=== PATIENT | male | born 1960 | race Caucasian/White ===

== ENCOUNTER 2016-07-28 17:18 | Inpatient (IN) | payer BC ==
[~2016-07-28] VITALS: Ht 177.8 cm; Wt 114.1 kg
[2016-07-28] MEDS ORDERED: PAROXETINE CR25 MG PO (17:35)
[2016-07-28] MEDS ORDERED: TRIBENZOR PO (17:36)
[2016-07-28 21:46] LABS: EOSINOPHIL (%) 0.4 % (0-5); EOSINOPHIL COUNT 0.1 K/uL (0-0.3); HEMATOCRIT 40.8 % (38.0-50.0); IMMATURE GRANULOCYTE (%) 0.4 % (0.0-0.7); IMMATURE GRANULOCYTE COUNT 0.6 K/uL; LYMPHOCYTE COUNT 1.4 K/uL (1.0-2.8); MCH 31.5 PG (29.0-34.0); MCHC 34.1 G/DL (30.0-36.0); MCV 92.5 FL (86-99); MONOCYTE (%) 5.3 % (3-12); MONOCYTE COUNT 0.7 K/uL (0-0.8); NEUTROPHIL (%) 83.3 % (45-76); NEUTROPHIL COUNT 11.4 K/uL (1.8-6.4); PLATELET COUNT 250 K/uL (156-360); RBC DIS.WIDTH-CV 12.9 % (11.8-14.6); RBC DIS.WIDTH-SD 42.4 % (39-53); RED BLOOD COUNT 4.41 M/uL (4.00-5.50); WHITE BLOOD COUNT 13.7 K/uL (4.1-10.2)
[2016-07-28 21:55] LABS: INTER. NORMALIZED RATIO 1.1; PROTHROMBIN TIME 10.8 (9.2-11.2)
[2016-07-28 22:00] LABS: CHLORIDE 104 mEq/L (99-109); POTASSIUM 4.8 mEq/L (3.7-5.4); SODIUM 138 mEq/L (136-147)
[2016-07-28 22:02] LABS: GLUCOSE 131 mg/dL (70-99)
[2016-07-28 22:03] LABS: ANION GAP 12 MEQ/L (2-14)
[2016-07-28 22:04] LABS: TOTAL BILIRUBIN 0.5 mg/dL (0.0-1.0)
[2016-07-28 22:05] LABS: ALKALINE PHOSPHATASE 44 IU/L (3-129)
[2016-07-28 22:06] LABS: GFR ESTIMATE (CALCULATED) > 59 mL/min/
[2016-07-28 22:07] LABS: UREA NITROGEN (BUN) 17 mg/dL (9-23)
[2016-07-28] MEDS ORDERED: TRIBENZOR 40-51 EAC4 PO (22:18)
[2016-07-28 23:41] VITALS: BP 124/76
[2016-07-29 04:56] VITALS: BP 117/68
[2016-07-29 05:38] LABS: HEMATOCRIT 41.2 % (38.0-50.0); MCH 32.8 PG (29.0-34.0); MCHC 34.5 G/DL (30.0-36.0); MCV 95.2 FL (86-99); MEAN PLAT.VOLUME 9.4 uM^3 (9.0-12.4); PLATELET COUNT 247 K/uL (156-360); RBC DIS.WIDTH-CV 13.2 % (11.8-14.6); RBC DIS.WIDTH-SD 45.7 % (39-53); RED BLOOD COUNT 4.33 M/uL (4.00-5.50); WHITE BLOOD COUNT 10.3 K/uL (4.1-10.2)
[2016-07-29 06:05] LABS: ANION GAP 9 MEQ/L (2-14); CHLORIDE 103 MEQ/L (99-109); GFR ESTIMATE (CALCULATED) > 59 mL/min/; GLUCOSE 114 mg/dL (70-99); POTASSIUM 4.2 MEQ/L (3.7-5.4); SAMPLE HEMOLYSIS CHECK 0; SAMPLE ICTERIC CHECK 0; SAMPLE LIPEMIA CHECK 0; SODIUM 138 MEQ/L (136-147); UREA NITROGEN (BUN) 17 mg/dL (9-23)
[2016-07-29 07:32] VITALS: BP 112/74
[2016-07-29 12:01] VITALS: BP 101/64
[2016-07-29 21:30] VITALS: BP 130/75
[2016-07-29 23:27] VITALS: BP 111/66
[2016-07-30 03:52] VITALS: BP 107/68
[2016-07-30 07:23] VITALS: BP 119/63
[2016-07-30 16:50] VITALS: BP 119/67
[2016-07-31] VITALS: BP 117/77
[2016-07-31 07:43] VITALS: BP 110/73
[2016-07-31 16:24] VITALS: BP 112/68
[2016-07-31 23:56] VITALS: BP 120/78
[2016-08-01 08:25] VITALS: BP 108/61
[2016-08-01] MEDS ORDERED: CELECOXIB200 MG PO (08:30)
[2016-08-01] MEDS ORDERED: ENDOCET 5-3251 EACH PO (08:30)
[2016-08-01] MEDS ORDERED: LOVENOX40 MG/0.4 SC (08:30)
[2016-08-01 15:36] VITALS: BP 112/74
[2016-08-02 00:06] VITALS: BP 107/78
[2016-08-02 08:30] VITALS: BP 115/70
[2016-08-02 11:41] VITALS: BP 115/70
[2016-08-02 16:41] VITALS: BP 119/76
[2016-08-03 00:27] VITALS: BP 114/86
[2016-08-03 07:38] VITALS: BP 118/76
[2016-08-03 15:47] VITALS: BP 107/67
[2016-08-04 00:21] VITALS: BP 100/70
[2016-08-04 07:30] VITALS: BP 118/79
== END 2016-08-04 16:46 | DRG 489 ==
LOC: EME → EDBD 17:18 → EDOF 22:05 → 3EAST 22:05
PROVIDERS: Emergency Medicine; Orthopaedic Surgery
DX: S82.451A Displaced comminuted fracture of shaft of right fibula, initial encounter for closed fracture (principal); W10.8XXA Fall (on) (from) other stairs and steps, initial encounter; I10 Essential (primary) hypertension; F32.9 Major depressive disorder, single episode, unspecified; S83.242A Other tear of medial meniscus, current injury, left knee, initial encounter; S93.01XA Subluxation of right ankle joint, initial encounter; F17.200 Nicotine dependence, unspecified, uncomplicated; Y92.008 Other place in unspecified non-institutional (private) residence as the place of occurrence of the external cause; E66.9 Obesity, unspecified; Z68.38 Body mass index [BMI] 38.0-38.9, adult
CPT/HCPCS: 73560; 73600; 73610; 73721; 76000; 80048; 80053; 85025; 85027; 85610; 97530 GO; 99281; 99285; C1713; J0690; J1170; J1650; J1885; J2250; J2270; J2405; J3010; J7030; S0020